=== PATIENT | female | born 1945 | race Caucasian/White ===

== ENCOUNTER 2020-06-22 19:47 | Emergency (ER) | payer MEDICARE, BC ==
[2020-06-22 20:02] VITALS: BP 176/70; PULSE 92
--- NOTE | 2020-06-22 20:05 | EDM.PDOC ---
ED HPI GENERAL MEDICAL PROBLEM - General Chief Complaint: Neuro Symptoms/Deficits Time Seen by Provider: 06/22/20 19:47 Source of Information: Reports: Patient, EMS, EMS Notes Reviewed, RN, RN Notes Reviewed History Limitations: Reports: No Limitations - History of Present Illness INITIAL COMMENTS - FREE TEXT/NARRATIVE: Stroke Code called 193 This 53 year old female presented to ER with [facility] with c/o left sided weakness and tingling that began just before 1900 this evening. Patient states she did have a headache as well. NIHSS = 0 Patient states she did have a headache this evening in the back of her head. States she did have some blurred vision just not focusing really well. States she felt weak and tingling in the left arm and the left leg. Patient does have a history of hypertension, takes medication for hypertension. Admits to history of bipolar depression, and anxiety. Patient states she did have a fall several years ago, hitting her head with a concussion. At this time all symptoms have resolved. Denies any recent illness, fever, chills, chest pains. Admitted to some shortness of breath with the symptoms previously described. Denies any nausea, vomiting, diarrhea. Denies any recent Covid exposure that she is aware of. States several in her apartment building were Covid positive, but she quarantined in her apartment. States she did have a friend that was Covid positive and she was exposed to her for a short amount of time. Has been tested a few months back, but was negative. Denies any history of stroke in the past, denies history of heart attack. Patient states she does have a history of fibromyalgia. Onset: Today, Sudden Occipital Pain Score (Numeric/FACES): 4 - Related Data Allergies Allergy/AdvReac Type Severity Reaction Status Date / Time lisinopril Allergy Cough Verified 06/22/20 20:06 Penicillins Allergy Rash Verified 06/22/20 20:06 Home Meds: Home Meds Aspirin [Adult Low Dose Aspirin EC] 81 mg PO DAILY 02/15/14 [History] Calcium Carbonate/Vitamin D3 [Calcium 500 + Vit D 200 Tablet] 1 tab PO DAILY 02/15/14 [History] Felodipine [Felodipine ER] 2 tab PO DAILY 02/15/14 [History] Glucosam/Chondr/Collagn/Hyalur [Glucosamine & Chondroitin Cap] 1 tab PO BID 02/15/14 [History] Losartan [Cozaar] 50 mg PO DAILY 02/15/14 [History] Lutein/Minerals/Vit A,C & E [Ocuvite] 1 tab PO DAILY 02/15/14 [History] Multivit-Min/FA/Lycopene/Lut [Centrum Silver] 1 tab PO DAILY 02/15/14 [History] Zolpidem [Ambien] 10 mg PO BEDTIME PRN 02/15/14 [History] atorvaSTATin [Lipitor] 10 mg PO BEDTIME 02/15/14 [History] hydroCHLOROthiazide [Hydrochlorothiazide] 25 mg PO DAILY 02/15/14 [History] lamoTRIgine [LaMICtal XR] 150 mg PO DAILY 02/15/14 [History] Ketotifen [Ketotifen 0.025% Ophth Soln] 1 drop EYEBOTH DAILY PRN 02/26/16 [History] Krill/Om-3/DHA/EPA/Phospho/Ast [Krill Oil 500 mg Softgel] 1 tab PO DAILY 02/26/16 [History] OLANZapine [ZyPREXA] 5 mg PO DAILY 02/26/16 [History] Past Medical History HEENT History: Reports: None Cardiovascular History: Reports: Angina, High Cholesterol, Hypertension Respiratory History: Reports: Pneumonia, Recurrent, Sleep Apnea Gastrointestinal History: Reports: Hiatal Hernia Other Gastrointestinal History: polyps removed in uterous Genitourinary History: Reports: Chronic Renal Insuffiency, Other (See Below) Other Genitourinary History: CKD STAGE [employer] History: Reports: Musculoskeletal History: Reports: Arthritis, Fibromyalgia Neurological History: Reports: None Psychiatric History: Reports: Bipolar Endocrine/Metabolic History: Reports: Diabetes, Type II, Osteopenia Hematologic History: Reports: None Oncologic (Cancer) History: Reports: Breast Dermatologic History: Reports: Other (See Below) Other Dermatologic History: ROSACEA - Infectious Disease History Infectious Disease History: Reports: Chicken Pox, Measles, Mumps - Past Surgical History Female Surgical History: Reports: Other (See Below) Musculoskeletal Surgical History: Reports: Other (See Below) Oncologic Surgical History: Reports: Biopsy of Breast, Lumpectomy Dermatological Surgical History: Reports: Skin Biopsy Social & Family History - Living Situation & Occupation Living situation: Reports: Single, Alone Occupation: Retired ED ROS GENERAL - Review of Systems Review Of Systems: Comprehensive ROS is negative, except as noted in HPI. ED EXAM, NEURO - Physical Exam Exam: See Below Exam Limited By: No Limitations General Appearance: Alert, WD/WN, No Apparent Distress, Anxious Eye Exam: Bilateral Eye: EOMI, Normal Inspection, PERRL (3 brisk) Ears: Normal External Exam, Hearing Grossly Normal Nose: Normal Inspection, Normal Mucosa, No Blood Throat/Mouth: Normal Inspection, Normal Lips, Normal Teeth, Normal Gums, Normal Oropharynx, Normal Voice, No Airway Compromise Head Exam: Atraumatic, Normocephalic Neck: Normal Inspection, Supple, Non-Tender, Full Range of Motion Respiratory/Chest: No Respiratory Distress, Normal Breath Sounds, No Accessory Muscle Use, Chest Non-Tender, Crackles (bases bilaterally) Cardiovascular: Normal Peripheral Pulses, Regular Rate, Rhythm, No Edema, No Gallop, No JVD, No Murmur, No Rub GI/Abdominal: Normal Bowel Sounds, Soft, Non-Tender, No Organomegaly, No Distention, No Abnormal Bruit, No Mass (Female) Exam: Deferred Rectal (Female) Exam: Deferred Neurological: Alert, Normal Mood/Affect, Normal Dorsiflexion, CN II-XII Intact, Normal Plantar Flexion, Normal Gait, Normal Reflexes, No Motor/Sensory Deficits, Oriented x 3 Back Exam: Normal Inspection, Full Range of Motion Extremities: Normal Inspection, Normal Range of Motion, Non-Tender, No Pedal Edema, Normal Capillary Refill Psychiatric: Normal Affect, Normal Mood, Anxious Skin Exam: Warm, Dry, Intact, Normal Color, No Rash Course - Vital Signs Last Recorded V/S: Last Vital Signs Temp 96.5 F L 06/22/20 19:57 Pulse 92 06/22/20 19:57 Resp 17 06/22/20 19:57 BP 176/70 H 06/22/20 19:57 Pulse Ox 97 06/22/20 19:57 - Orders/Labs/Meds Labs: Laboratory Tests 06/22/20 06/22/20 06/22/20 Range/Units 19:49 19:49 19:51 WBC 9.2 (5.0-10.0) 10^3/uL RBC 4.43 (4.2-5.4) 10^6/uL Hgb 14.2 D (12.0-16.0) g/dL Hct 40.7 (37.0-47.0) % MCV 91.9 D (80-100) fL MCH 32.1 (27.0-34.0) pg MCHC 34.9 (33.0-35.0) g/dL Plt Count 325 D (150-450) 10^3/uL Neut % (Auto) 69.4 (42.2-75.2) % Lymph % (Auto) 18.3 L (20.5-50.1) % Craven % (Auto) 11.4 H (2-8) % Eos % (Auto) 0.7 L (1.0-3.0) % Baso % (Auto) 0.2 (0.0-1.0) % Sodium 128 L (136-145) mmol/L Potassium 3.3 L (3.5-5.1) mmol/L Chloride 92 L (98-107) mmol/L Carbon Dioxide 30 (21-32) mmol/L Anion Gap 9.3 (7-13) mEq/L BUN 15 (7-18) mg/dL Creatinine 0.83 (0.55-1.02) mg/dL Est Cr Clr Drug Dosing 49.51 mL/min Estimated GFR (MDRD) > 60 BUN/Creatinine Ratio 18.1 (No establ ref range) Glucose 92 (74-99) mg/dL POC Glucose 95 (83-110) mg/dl Calcium 9.3 (8.5-10.1) mg/dL Total Bilirubin 0.3 (0.2-1.0) mg/dL AST 22 (15-37) U/L ALT 47 (14-59) U/L Alkaline Phosphatase 78 (46-116) U/L Lactate Dehydrogenase 176 (81-234) U/L Troponin I < 0.017 (0.000-0.056) ng/mL C-Reactive Protein 0.3 (0.0-0.9) mg/dL B-Natriuretic Peptide 14 (0-100) pg/ml Total Protein 7.1 (6.4-8.2) g/dL Albumin 3.9 (3.4-5.0) g/dL Globulin 3.2 Albumin/Globulin Ratio 1.2 Urine Color (YELLOW) Urine Appearance (CLEAR) Urine pH (5.0-9.0) Ur Specific [place] (1.005-1.030) Urine Protein (NEGATIVE) Urine Glucose (UA) (NEGATIVE) Urine Ketones (NEGATIVE) Urine Occult Blood (NEGATIVE) Urine Nitrite (NEGATIVE) Urine Bilirubin (NEGATIVE) Urine Urobilinogen (0.2-1.0) mg/dL Ur Leukocyte Esterase (NEGATIVE) Urine RBC /HPF Urine WBC (0-5/HPF) /HPF Ur Epithelial Cells (NOT SEEN) /HPF Amorphous Sediment (NOT SEEN) /HPF Urine Bacteria (0-FEW/HPF) /HPF Urine Mucus (NOT SEEN) /LPF SARS CoV-2 RNA Rapid YUAN (NEGATIVE) 06/22/20 06/22/20 Range/Units 20:17 20:33 WBC (5.0-10.0) 10^3/uL RBC (4.2-5.4) 10^6/uL Hgb (12.0-16.0) g/dL Hct (37.0-47.0) % MCV (80-100) fL MCH (27.0-34.0) pg MCHC (33.0-35.0) g/dL Plt Count (150-450) 10^3/uL Neut % (Auto) (42.2-75.2) % Lymph % (Auto) (20.5-50.1) % Craven % (Auto) (2-8) % Eos % (Auto) (1.0-3.0) % Baso % (Auto) (0.0-1.0) % Sodium (136-145) mmol/L Potassium (3.5-5.1) mmol/L Chloride (98-107) mmol/L Carbon Dioxide (21-32) mmol/L Anion Gap (7-13) mEq/L BUN (7-18) mg/dL Creatinine (0.55-1.02) mg/dL Est Cr Clr Drug Dosing mL/min Estimated GFR (MDRD) BUN/Creatinine Ratio (No establ ref range) Glucose (74-99) mg/dL POC Glucose (83-110) mg/dl Calcium (8.5-10.1) mg/dL Total Bilirubin (0.2-1.0) mg/dL AST (15-37) U/L ALT (14-59) U/L Alkaline Phosphatase (46-116) U/L Lactate Dehydrogenase (81-234) U/L Troponin I (0.000-0.056) ng/mL C-Reactive Protein (0.0-0.9) mg/dL B-Natriuretic Peptide (0-100) pg/ml Total Protein (6.4-8.2) g/dL Albumin (3.4-5.0) g/dL Globulin Albumin/Globulin Ratio Urine Color Yellow (YELLOW) Urine Appearance Slightly cloudy (CLEAR) Urine pH 7.0 (5.0-9.0) Ur Specific [place] 1.020 (1.005-1.030) Urine Protein Negative (NEGATIVE) Urine Glucose (UA) Negative (NEGATIVE) Urine Ketones Negative (NEGATIVE) Urine Occult Blood Negative (NEGATIVE) Urine Nitrite Negative (NEGATIVE) Urine Bilirubin Negative (NEGATIVE) Urine Urobilinogen 0.2 (0.2-1.0) mg/dL Ur Leukocyte Esterase Small H (NEGATIVE) Urine RBC Not seen /HPF Urine WBC 10-20 H (0-5/HPF) /HPF Ur Epithelial Cells Few (NOT SEEN) /HPF Amorphous Sediment Rare (NOT SEEN) /HPF Urine Bacteria Few (0-FEW/HPF) /HPF Urine Mucus Rare (NOT SEEN) /LPF SARS CoV-2 RNA Rapid YUAN Negative (NEGATIVE) Meds: Medications Discontinued Medications Generic Name Dose Route Start Last Admin Trade Name Nilo PRN Reason Stop Dose Admin Acetaminophen 650 mg 06/22/20 21:13 06/22/20 21:20 Tylenol PO 06/22/20 21:14 650 mg NOW ONE Administration Sodium Chloride 1,000 mls @ 999 mls/hr 06/22/20 20:36 06/22/20 20:45 Normal Saline IV 06/22/20 21:36 999 mls/hr .BOLUS ONE Administration Nitrofurantoin Macrocrystals 100 mg 06/22/20 21:39 06/22/20 21:53 Macrobid PO 06/22/20 21:40 100 mg ONETIME ONE Administration Potassium Chloride 20 meq 06/22/20 20:36 06/22/20 20:46 Klor-Con 10 PO 06/22/20 20:37 20 meq ONETIME ONE Administration - Radiology Interpretation Free Text/Narrative:: Head CT wo contrast: PROCEDURE INFORMATION: Exam: CT Head Without Contrast Exam date and time: 06/22/2020 8:04 PM Age: 74 years old Clinical indication: Other: Left sided weakness--headache; Additional info: Stroke code TECHNIQUE: Imaging protocol: Computed tomography of the head without contrast. Radiation optimization: All CT scans at this facility use at least one of these dose optimization techniques: automated exposure control; mA and/or kV adjustment per patient size (includes targeted exams where dose is matched to clinical indication); or iterative reconstruction. Other technique: STROKE PROTOCOL was implemented. COMPARISON: No relevant prior studies available. FINDINGS: Brain: There is mild amount of scattered areas of hypoattenuation of the supratentorial white matter, most likely secondary to microvascular ischemic changes. No acute intracranial hemorrhage. Cerebral ventricles: No ventriculomegaly. Bones/joints: Unremarkable. No acute fracture. Paranasal sinuses: Visualized sinuses are unremarkable. No fluid levels. Mastoid air cells: Visualized mastoid air cells are well aerated. Soft tissues: Unremarkable. IMPRESSION: No acute intracranial process. ASSESSMENT: ASPECTS (Isa Stroke Program Early CT Score) is 10. Thank you for allowing us to participate in the care of your patient. Dictated and Authenticated by: Cruz Valdes MD 06/22/2020 8:12 PM Central Time ([place] & [place]) See rad report Departure - Departure Time of Disposition: 22:05 Disposition: Home, Self-Care 01 Condition: Good Clinical Impression: Stroke-like symptoms UTI (urinary tract infection) Qualifiers: Urinary tract infection type: acute cystitis Hematuria presence: without hematuria Qualified Code(s): N30.00 - Acute cystitis without hematuria - Discharge Information *PRESCRIPTION DRUG MONITORING PROGRAM REVIEWED*: No *COPY OF PRESCRIPTION DRUG MONITORING REPORT IN PATIENT KRISS: No Instructions: Antibiotic Medicine, Adult, [id number], Urinary Tract Infection, Adult, [id number] Forms: ED Department Discharge Additional Instructions: RX: Macrobid May use Tylenol for headache Follow up with your primary care facility next week Return to the ER with any worsening of symptoms Drink plenty of water Sepsis Event Note (ED) - Evaluation Sepsis Screening Result: No Definite Risk - Focused Exam Vital Signs: Vital Signs Temp Pulse Resp BP Pulse Ox 06/22/20 19:57 96.5 F L 92 17 176/70 H 97
--- NOTE | 2020-06-22 20:12 | CT ---
PROCEDURE INFORMATION: Exam: CT Head Without Contrast Exam date and time: 06/22/2020 8:04 PM Age: 74 years old Clinical indication: Other: Left sided weakness--headache; Additional info: Stroke code TECHNIQUE: Imaging protocol: Computed tomography of the head without contrast. Radiation optimization: All CT scans at this facility use at least one of these dose optimization techniques: automated exposure control; mA and/or kV adjustment per patient size (includes targeted exams where dose is matched to clinical indication); or iterative reconstruction. Other technique: STROKE PROTOCOL was implemented. COMPARISON: No relevant prior studies available. FINDINGS: Brain: There is mild amount of scattered areas of hypoattenuation of the supratentorial white matter, most likely secondary to microvascular ischemic changes. No acute intracranial hemorrhage. Cerebral ventricles: No ventriculomegaly. Bones/joints: Unremarkable. No acute fracture. Paranasal sinuses: Visualized sinuses are unremarkable. No fluid levels. Mastoid air cells: Visualized mastoid air cells are well aerated. Soft tissues: Unremarkable. IMPRESSION: No acute intracranial process. ASSESSMENT: ASPECTS (Isa Stroke Program Early CT Score) is 10.
[2020-06-22 20:34] LABS: ANION GAP 9.3 mEq/L (7-13); CHLORIDE,CL 92 mmol/L (98-107); SODIUM,NA 128 mmol/L (136-145)
[2020-06-22] MEDS ORDERED: Potassium Chloride 10 MEQ Tab.ER PO ONE (20:36)
[2020-06-22] MEDS ORDERED: Sodium Chloride 0.9% 1,000 ML IV ONE (20:36)
[2020-06-22] MEDS ORDERED: Acetaminophen 325 MG Tab PO ONE (21:13)
[2020-06-22] MEDS ORDERED: Nitrofurantoin Monohydrate/Macrocrystalline 100 MG Cap PO ONE (21:39)
== END 2020-06-22 22:05 | disposition home or self-care (01) ==
LOC: DL.ED 19:47
DX: N30.00 Acute cystitis without hematuria (principal); R53.1 Weakness; R51.9 Headache, unspecified; R20.2 Paresthesia of skin; Z20.828 Contact with and (suspected) exposure to other viral communicable diseases; I12.9 Hypertensive chronic kidney disease with stage 1 through stage 4 chronic kidney disease, or unspecified chronic kidney disease; E11.22 Type 2 diabetes mellitus with diabetic chronic kidney disease; N18.2 Chronic kidney disease, stage 2 (mild); E78.00 Pure hypercholesterolemia, unspecified; F31.9 Bipolar disorder, unspecified; F41.9 Anxiety disorder, unspecified; Z88.0 Allergy status to penicillin; Z88.8 Allergy status to other drugs, medicaments and biological substances; Z79.82 Long term (current) use of aspirin; Z79.899 Other long term (current) drug therapy
CPT/HCPCS: 36415; 70450; 80053; 81001; 82962; 83615; 83880; 84484; 85025; 86140; 93005; 99285; A9270; J7030; U0002

== ENCOUNTER 2023-05-13 10:50 | Emergency (ER) | payer MEDICARE, BC ==
[2023-05-13] MEDS ORDERED: Sodium Chloride 0.9% 1,000 ML IV ONE (11:04)
[2023-05-13] MEDS ORDERED: Sodium Chloride 0.9% 10 ML Syringe FLUSH PRN (11:04)
[2023-05-13 11:21] LABS: BASOPHILS PERCENT AUTO 0.1 % (0.0-1.0); EOSINOPHILS PERCENT AUTO 0.1 % (1.0-3.0); HEMATOCRIT 38.9 % (37.0-47.0); HEMOGLOBIN 13.2 g/dL (12.0-16.0); LYMPHOCYTES PERCENT AUTO 2.6 % (20.5-50.1); MEAN CORPUSCULAR HEMOGLOBIN 31.3 pg (27.0-34.0); MEAN CORPUSCULAR HGB CONC 33.9 g/dL (33.0-35.0); MEAN CORPUSCULAR VOLUME 92.2 fL (80-100); MONOCYTES PERCENT AUTO 0.4 % (2-8); NEUTROPHILS PERCENT AUTO 96.8 % (42.2-75.2); PLATELET COUNT,PLT 245 10^3/uL (150-450); RED BLOOD CELL COUNT 4.22 10^6/uL (4.2-5.4)
[2023-05-13 11:25] VITALS: BP 159/56; PULSE 103
[2023-05-13 11:43] LABS: A/G RATIO 1.06; ALBUMIN 3.3 g/dL (3.4-5.0); ANION GAP 12.3 mEq/L (7-13); BILIRUBIN TOTAL 0.6 mg/dL (0.2-1.0); BUN/CREATININE RATIO 21.1 (No establ ref range); CALCIUM 8.3 mg/dL (8.5-10.1); CREATININE 0.95 mg/dL (0.55-1.02); POTASSIUM,K 3.3 mmol/L (3.5-5.1); PROTEIN TOTAL,TP 6.4 g/dL (6.4-8.2)
== END 2023-05-13 12:44 | disposition home or self-care (01) ==
LOC: DL.ED 10:50
DX: R55 Syncope and collapse (principal); E78.00 Pure hypercholesterolemia, unspecified; I12.9 Hypertensive chronic kidney disease with stage 1 through stage 4 chronic kidney disease, or unspecified chronic kidney disease; E11.22 Type 2 diabetes mellitus with diabetic chronic kidney disease; N18.2 Chronic kidney disease, stage 2 (mild); Z88.8 Allergy status to other drugs, medicaments and biological substances; Z88.0 Allergy status to penicillin; Z79.82 Long term (current) use of aspirin; Z79.899 Other long term (current) drug therapy
CPT/HCPCS: 36415; 80053; 85025; 99284

== ENCOUNTER 2023-12-07 12:08 | Emergency (ER) | payer MEDICARE, BC ==
[2023-12-07 12:23] LABS: BASOPHILS PERCENT AUTO 0.3 % (0.0-1.0); EOSINOPHILS PERCENT AUTO 1.2 % (1.0-3.0); HEMATOCRIT 41.4 % (37.0-47.0); LYMPHOCYTES PERCENT AUTO 20.9 % (20.5-50.1); MEAN CORPUSCULAR HEMOGLOBIN 30.6 pg (27.0-34.0); MEAN CORPUSCULAR HGB CONC 33.8 g/dL (33.0-35.0); MEAN CORPUSCULAR VOLUME 90.4 fL (80-100); MONOCYTES PERCENT AUTO 9.4 % (2-8); NEUTROPHILS PERCENT AUTO 68.2 % (42.2-75.2); PLATELET COUNT,PLT 307 10^3/uL (150-450); RED BLOOD CELL COUNT 4.58 10^6/uL (4.2-5.4); WHITE BLOOD CELL COUNT,WBC 9.4 10^3/uL (5.0-10.0)
[2023-12-07] MEDS: Norepinephrine Bit/D5W Premix 250 ML IV SCH (12:30)
[2023-12-07] MEDS: Sodium Chloride 0.9% 1,000 ML IV ONE (12:30)
[2023-12-07 12:54] LABS: INR 1.1 (0.9-1.2); PTT,PARTIAL THROMBOPLSTIN TIME 21.8 SEC (22.0-34.0)
[2023-12-07] MEDS: Norepinephrine Bit/D5W Premix 250 ML ONE (12:54)
[2023-12-07 12:55] LABS: A/G RATIO 1.1; ALANINE AMINOTRANSFERASE,ALT 29 U/L (14-59); ALKALINE PHOSPHATASE 75 U/L (46-116); ANION GAP 18.8 mEq/L (7-13); ASPARTATE AMNIOTRANSFERASE,AST 22 U/L (15-37); BILIRUBIN TOTAL 0.7 mg/dL (0.2-1.0); BLOOD UREA NITROGEN,BUN 19 mg/dL (7-18); BUN/CREATININE RATIO 13.9 (No establ ref range); CALCIUM 9.1 mg/dL (8.5-10.1); CARBON DIOXIDE,CO2 24 mmol/L (21-32); CHLORIDE,CL 98 mmol/L (98-107); CREATININE 1.37 mg/dL (0.55-1.02); EST CRCL DRUG DOSING (CG) 27.99 mL/min; GLUCOSE RANDOM 151 mg/dL (70-99); MAGNESIUM 1.6 mg/dL (1.8-2.4); POTASSIUM,K 3.8 mmol/L (3.5-5.1); PROTEIN TOTAL,TP 7.6 g/dL (6.4-8.2); SODIUM,NA 137 mmol/L (136-145); TSH ULTRASENSITIVE 12.38 uIU/mL (0.36-3.74)
[2023-12-07 12:57] LABS: C-REACTIVE PROTEIN < 0.50 ng/dL (<=0.50); ESTIMATED GFR 40 mL/min (>=60)
[2023-12-07 13:00] LABS: LACTIC ACID 2.8 mmol/L (0.4-2.0)
[2023-12-07] MEDS: Sodium Chloride 0.9% 10 ML Syringe FLUSH PRN (13:06)
[2023-12-07] MEDS: Magnesium Oxide 400 MG Tab PO ONE (14:18)
[2023-12-07] MEDS: Levothyroxine 25 MCG Tab PO ONE (14:18)
[2023-12-07 14:53] VITALS: BP 111/80; PULSE 82
== END 2023-12-07 16:00 | disposition home or self-care (01) ==
LOC: DL.ED 12:08
DX: E83.42 Hypomagnesemia (principal); R55 Syncope and collapse; R94.6 Abnormal results of thyroid function studies; E78.00 Pure hypercholesterolemia, unspecified; I12.9 Hypertensive chronic kidney disease with stage 1 through stage 4 chronic kidney disease, or unspecified chronic kidney disease; N18.9 Chronic kidney disease, unspecified; E11.22 Type 2 diabetes mellitus with diabetic chronic kidney disease; Z88.0 Allergy status to penicillin; Z88.8 Allergy status to other drugs, medicaments and biological substances; Z79.82 Long term (current) use of aspirin; Z79.899 Other long term (current) drug therapy; Z86.19 Personal history of other infectious and parasitic diseases
CPT/HCPCS: 36415; 71045; 80053; 83605; 83735; 84145; 84443; 84484; 85025; 85610; 85730; 86140; 93005; 93010; 96365; 99284; A9270; J7030; J3490